=== PATIENT | female | born 1955 | race Caucasian/White ===

== ENCOUNTER 2021-08-07 13:14 | Emergency (ER) | payer OTHER ==
[~2021-08-07] VITALS: Ht 160 cm; Wt 81.6 kg
--- NOTE | 2021-08-07 13:26 | NUR ---
BIB [facility] FROM HOME,C/O RIGHT SHOULDER PAIN,S/P TRIP/FALL. PT A/OX4. TOLERATING R/A WELL WITH NO SOB. CONNECTED PT TO POX AND MONITOR.
[2021-08-07] MEDS ORDERED: PROPOFOL 20 ML IV ONE (14:58)
[2021-08-07] MEDS ORDERED: FENTANYL PF 100MCG/2ML AMPUL ONE (14:59)
--- NOTE | 2021-08-07 14:59 | NUR ---
RN CORRECTIONS AT PT'S BEDSIDE
[2021-08-07] MEDS: PROPOFOL 200 MG/20 ML VIAL IV ONE ×2 (15:00→15:56)
[2021-08-07] MEDS: FENTANYL PF 100MCG/2ML AMPUL IV ONE ×2 (15:00→15:57)
--- NOTE | 2021-08-07 15:30 | NUR ---
SLING APPLIED TO PT'S RIGHT ARM
[2021-08-07] MEDS ORDERED: NAPR-1009 PO (15:46)
--- NOTE | 2021-08-07 16:18 | NUR ---
Patient discharged to home in stable condition. Written and verbal after care instructions given. Patient verbalizes understanding of instruction. PT ambulatory with a steady gait, SLING TO R ARM
[2021-08-07 16:20] VITALS: BP 136/74
== END 2021-08-07 16:33 | disposition home or self-care (01) ==
LOC: ER 13:25
DX: S43.004A Unspecified dislocation of right shoulder joint, initial encounter (principal); Z88.6 Allergy status to analgesic agent; Z88.8 Allergy status to other drugs, medicaments and biological substances; W01.0XXA Fall on same level from slipping, tripping and stumbling without subsequent striking against object, initial encounter; Y93.89 Activity, other specified; Y92.89 Other specified places as the place of occurrence of the external cause; Y99.8 Other external cause status
CPT/HCPCS: 73020; 73030-TC; J2704; J3010

== ENCOUNTER 2024-10-26 19:36 | Emergency (ER) | payer OTHER, MEDICAID ==
[~2024-10-26] VITALS: Ht 160 cm; Wt 81.6 kg
[~2024-10-26 19:36] MED LIST: NAPR-1009 PO
[2024-10-26] MEDS ORDERED: IBUPROFEN 400 MG TABLET ONE (22:22)
[2024-10-26] MEDS: IBUPROFEN 400 MG TABLET PO ONE (22:23)
[2024-10-26] MEDS ORDERED: IBUP-1957 PO (22:59)
[2024-10-27 00:18] VITALS: BP 138/74; TEMP 98.6; O2SAT 98
== END 2024-10-27 00:19 | disposition home or self-care (01) ==
LOC: ER 19:39
DX: S82.832A Other fracture of upper and lower end of left fibula, initial encounter for closed fracture (principal); E11.9 Type 2 diabetes mellitus without complications; I10 Essential (primary) hypertension; Z79.1 Long term (current) use of non-steroidal anti-inflammatories (NSAID); Z88.5 Allergy status to narcotic agent; W18.39XA Other fall on same level, initial encounter; Y93.89 Activity, other specified; Y92.89 Other specified places as the place of occurrence of the external cause; Y99.8 Other external cause status
CPT/HCPCS: 72170-TC; 73552; 73590-TC